=== PATIENT | female | born 1990 | race Caucasian/White ===

== ENCOUNTER 2021-09-10 20:32 | Emergency (ER) | payer MEDICAID ==
[~2021-09-10] VITALS: Ht 165.1 cm; Wt 90.0 kg
[2021-09-11] MEDS ORDERED: ketorolac trometh inj. 60 MG/2 ML VIAL IM ONE (00:30)
[2021-09-11] MEDS ORDERED: acetaminophen 325mg tablet PO ONE (00:30)
--- NOTE | 2021-09-11 00:52 | NUR ---
Pt taken to CT via wheelchair.
[2021-09-11] MEDS ORDERED: ACET-1025 PO (01:15)
--- NOTE | 2021-09-11 01:20 | NUR ---
RN reviewed discharge instructions with patient. Patient verbalizes understanding. Paper prescription handed to patient.
--- NOTE | 2021-09-11 01:27 | NUR ---
Dr. Farris states it's okay to go ahead and discharge patient, reassessment after tylenol and toradol not needed. Pt states pain has improved.
[2021-09-11 01:31] VITALS: BP 116/79
== END 2021-09-11 01:34 | disposition home or self-care (01) ==
LOC: ER 20:33
DX: M25.562 Pain in left knee (principal); X58.XXXA Exposure to other specified factors, initial encounter; Y93.89 Activity, other specified; Y92.89 Other specified places as the place of occurrence of the external cause; Y99.8 Other external cause status
CPT/HCPCS: 73564; 73700; 96372; 99284; J1885